=== PATIENT | male | born 1955 | race African-American/Black ===

== ENCOUNTER 2016-05-11 00:31 | Emergency (ER) | payer MEDICAID ==
[~2016-05-11] VITALS: Ht 180.3 cm; Wt 72.0 kg
[~2016-05-11 00:31] MED LIST: ALBU05
[2016-05-11] MEDS ORDERED: KETOROLAC 30MG/ML VIAL IV ONE (02:00)
[2016-05-11 02:02] LABS: BASOPHILS % 2.6 % (0.0-2.0); EOSINOPHILS % 3.2 % (0.0-5.0); HEMOGLOBIN. 14.2 g/dL (14.0-18.0); LYMPHOCYTES % 29.2 % (20.0-50.0); MEAN CORPUSCULAR HEMOGLOBIN 32.7 pg (28.0-32.0); MEAN CORPUSCULAR HGB CONC 33.1 g/dL (31.0-37.0); MEAN CORPUSCULAR VOLUME 98.8 fL (80.0-94.0); MEAN PLATELET VOLUME 8.1 fl (7.4-10.4); MONOCYTES % 20.2 % (2.0-8.0); NEUTROPHILS % 44.8 % (40.0-76.0); PLATELET 151 x1000/uL (130-400); RED BLOOD CELL COUNT 4.36 mill/uL (4.7-6.1); WHITE BLOOD COUNT 4.7 x1000/uL (4.5-11.0)
[2016-05-11 02:03] LABS: DIFFERENTIAL COMMENT 1
[2016-05-11 02:13] LABS: ANION GAP 9; CALCIUM 8.2 mg/dL (8.5-10.1); CARBON DIOXIDE 30 mEq/L (21-32); CHLORIDE 107 mEq/L (98-107); INDEX HEMOLYSI 1 (1-3); INDEX ICTERIC 1 (1-4); INDEX LIPEMIC 1 (1-3); UREA NITROGEN BLOOD 21 mg/dL (7-21)
[2016-05-11 02:17] LABS: NT PRO B-TYPE NATRIURETIC PEP 263 pg/mL (5-125); TROPONIN I < 0.02 ng/mL (0.00-0.04); eGFR > 60 mL/min (>60)
[2016-05-11] MEDS ORDERED: GUAIFENESIN/CODEINE 200-20MG/10ML UDC PO ONE (04:45)
[2016-05-11 05:20] VITALS: BP 158/99
[2016-05-11] MEDS ORDERED: GUAIFENESIN/CODEINE 200-20MG/10ML UDC PO NR (05:30)
== END 2016-05-11 06:39 | disposition home or self-care (01) ==
LOC: ER 00:33
DX: R07.9 Chest pain, unspecified (principal); R05 Cough; I10 Essential (primary) hypertension; J45.909 Unspecified asthma, uncomplicated; F17.200 Nicotine dependence, unspecified, uncomplicated; Z93.3 Colostomy status
CPT/HCPCS: 36415; 71010; 80048; 83880; 84484; 85025; 93005; 96374; 99285; J1885; Z7610

== ENCOUNTER 2016-05-19 03:38 | Emergency (ER) | payer MEDICAID ==
[~2016-05-19] VITALS: Ht 177.8 cm; Wt 75.0 kg
[2016-05-19] MEDS ORDERED: ASPIRIN 81MG TABLET PO STA (04:07)
[2016-05-19 04:24] LABS: HEMATOCRIT. 41.3 % (42.0-52.0); HEMOGLOBIN. 13.5 g/dL (14.0-18.0); MEAN CORPUSCULAR HEMOGLOBIN 32.2 pg (28.0-32.0); MEAN CORPUSCULAR HGB CONC 32.7 g/dL (31.0-37.0); MEAN CORPUSCULAR VOLUME 98.4 fL (80.0-94.0); MEAN PLATELET VOLUME 8.5 fl (7.4-10.4); PLATELET 207 x1000/uL (130-400); RED CELL DISTRIBUTION WIDTH 12.8 % (11.6-14.6); WHITE BLOOD COUNT 5.4 x1000/uL (4.5-11.0)
[2016-05-19 04:31] LABS: PROTHROMBIN TIME 10.6 sec
[2016-05-19 04:35] LABS: ALANINE AMINOTRANSFERASE 16 IU/L (13-61); ALBUMIN 3.4 g/dL (3.4-5.0); ANION GAP 15; CALCIUM 8.4 mg/dL (8.5-10.1); CARBON DIOXIDE 25 mEq/L (21-32); CHLORIDE 107 mEq/L (98-107); INDEX HEMOLYSI 1 (1-3); INDEX ICTERIC 1 (1-4); INDEX LIPEMIC 1 (1-3); LIPASE 105 IU/L (73-393); UREA NITROGEN BLOOD 15 mg/dL (7-21); eGFR 52 mL/min (>60)
[2016-05-19 04:38] LABS: TROPONIN I < 0.02 ng/mL (0.00-0.04)
[2016-05-19 04:48] LABS: PLATELET ESTIMATE NORMAL
[2016-05-19 05:49] VITALS: BP 135/88
== END 2016-05-19 05:49 | disposition home or self-care (01) ==
LOC: ER 03:39
DX: R05 Cough (principal); I10 Essential (primary) hypertension; R07.2 Precordial pain; J45.909 Unspecified asthma, uncomplicated; F17.200 Nicotine dependence, unspecified, uncomplicated; Z93.3 Colostomy status
CPT/HCPCS: 36415; 71010; 80053; 83690; 84484; 85025; 85610; 85730; 93005; 99285; Z7610

== ENCOUNTER 2016-05-28 08:39 | Emergency (ER) | payer MEDICAID ==
[~2016-05-28] VITALS: Ht 177.8 cm; Wt 73.0 kg
[2016-05-28] MEDS ORDERED: IBUPROFEN 800MG TABLET PO ONE (09:15)
[2016-05-28] MEDS ORDERED: BENAZEPRIL 20MG TABLET PO ONE (09:15)
[2016-05-28] MEDS ORDERED: AMLODIPINE 5MG TABLET PO SCH (09:15)
[2016-05-28 09:52] VITALS: BP 180/89
== END 2016-05-28 10:38 | disposition home or self-care (01) ==
LOC: ER 08:39
DX: I10 Essential (primary) hypertension (principal); J45.909 Unspecified asthma, uncomplicated; F17.200 Nicotine dependence, unspecified, uncomplicated; Z93.3 Colostomy status
CPT/HCPCS: 99284; Z7610

== ENCOUNTER 2016-06-20 12:01 | Emergency (ER) | payer MEDICAID ==
[~2016-06-20] VITALS: Ht 177.8 cm; Wt 78.0 kg
[2016-06-20 14:46] VITALS: BP 138/72
== END 2016-06-20 17:53 | disposition home or self-care (01) ==
LOC: ER 14:23
DX: Z76.89 Persons encountering health services in other specified circumstances (principal); M79.671 Pain in right foot; I10 Essential (primary) hypertension; J45.909 Unspecified asthma, uncomplicated
CPT/HCPCS: 99282

== ENCOUNTER 2016-07-03 06:52 | Emergency (ER) | payer MEDICAID ==
[~2016-07-03] VITALS: Ht 177.8 cm; Wt 75.0 kg
[2016-07-03 07:01] VITALS: BP 179/98
== END 2016-07-03 10:30 | disposition home or self-care (01) ==
LOC: ER 09:33
DX: L84 Corns and callosities (principal); J45.909 Unspecified asthma, uncomplicated; I10 Essential (primary) hypertension; F17.210 Nicotine dependence, cigarettes, uncomplicated; Z87.828 Personal history of other (healed) physical injury and trauma; Z98.890 Other specified postprocedural states; Z93.3 Colostomy status
CPT/HCPCS: 99281

== ENCOUNTER 2017-02-27 13:34 | Emergency (ER) | payer MEDICAID ==
[~2017-02-27] VITALS: Ht 177.8 cm; Wt 84.0 kg
[~2017-02-27 13:34] MED LIST changes: +AMLO5TAB4 PO; +P20 PO
[2017-02-27 13:51] VITALS: BP 159/99
== END 2017-02-27 18:21 | disposition home or self-care (01) ==
LOC: ER 15:19
DX: Z76.0 Encounter for issue of repeat prescription (principal); J45.909 Unspecified asthma, uncomplicated; I10 Essential (primary) hypertension; F17.210 Nicotine dependence, cigarettes, uncomplicated; F14.10 Cocaine abuse, uncomplicated; Z93.3 Colostomy status
CPT/HCPCS: 99283

== ENCOUNTER 2017-03-07 20:27 | Emergency (ER) | payer MEDICAID ==
[~2017-03-07] VITALS: Ht 177.8 cm; Wt 78.0 kg
[2017-03-08 06:00] VITALS: BP 142/85
[2017-03-08] MEDS ORDERED: ACETAMINOPHEN 325MG TABLET PO ONE (07:00)
== END 2017-03-08 07:09 | disposition home or self-care (01) ==
LOC: ER 22:23
DX: L84 Corns and callosities (principal); M79.671 Pain in right foot; J45.909 Unspecified asthma, uncomplicated; I10 Essential (primary) hypertension; F17.200 Nicotine dependence, unspecified, uncomplicated; M79.672 Pain in left foot; F14.10 Cocaine abuse, uncomplicated
CPT/HCPCS: 99283

== ENCOUNTER 2017-04-01 07:38 | Emergency (ER) | payer MEDICAID ==
[~2017-04-01] VITALS: Ht 177.8 cm; Wt 78.0 kg
[2017-04-01] MEDS ORDERED: IBUPROFEN 600MG TABLET PO ONE (11:15)
[2017-04-01 12:04] VITALS: BP 170/101
== END 2017-04-01 12:37 | disposition home or self-care (01) ==
LOC: ER 07:38
DX: L03.115 Cellulitis of right lower limb (principal); B35.3 Tinea pedis; M77.41 Metatarsalgia, right foot; J06.9 Acute upper respiratory infection, unspecified; J45.909 Unspecified asthma, uncomplicated; I10 Essential (primary) hypertension; F14.10 Cocaine abuse, uncomplicated; F17.200 Nicotine dependence, unspecified, uncomplicated; Z93.3 Colostomy status
CPT/HCPCS: 71045; 73630; 99284

== ENCOUNTER 2017-09-30 20:11 | Emergency (ER) | payer MEDICAID ==
[~2017-09-30] VITALS: Ht 177.8 cm; Wt 72.8 kg
[2017-09-30] MEDS ORDERED: IPRATROPIUM BROMIDE (0.02%) 0.5MG/2.5ML NEB HHN STA (23:03)
[2017-09-30] MEDS ORDERED: ALBUTEROL (0.083%) 2.5MG/3ML NEB HHN STA (23:03)
[2017-10-01 00:36] VITALS: BP 154/84
== END 2017-10-01 00:49 | disposition home or self-care (01) ==
LOC: ER 22:25
DX: J45.901 Unspecified asthma with (acute) exacerbation (principal); F41.9 Anxiety disorder, unspecified; F17.200 Nicotine dependence, unspecified, uncomplicated; Z79.899 Other long term (current) drug therapy; Z93.3 Colostomy status
CPT/HCPCS: 94640; 99283; J7611

== ENCOUNTER 2017-11-10 04:58 | Emergency (ER) | payer MEDICAID ==
[~2017-11-10] VITALS: Ht 177.8 cm; Wt 77.0 kg
[2017-11-10] MEDS ORDERED: ALBUTEROL (0.083%) 2.5MG/3ML NEB HHN STA (06:01)
[2017-11-10] MEDS ORDERED: IPRATROPIUM BROMIDE (0.02%) 0.5MG/2.5ML NEB HHN STA (06:01)
[2017-11-10] MEDS ORDERED: PREDNISONE 20MG TABLET PO STA (06:01)
[2017-11-10] MEDS ORDERED: AMLODIPINE 5MG TABLET PO ONE (06:15)
[2017-11-10 08:50] VITALS: BP 170/88
== END 2017-11-10 09:00 | disposition home or self-care (01) ==
LOC: ER 04:58
DX: J45.901 Unspecified asthma with (acute) exacerbation (principal); I10 Essential (primary) hypertension; F41.9 Anxiety disorder, unspecified; F17.200 Nicotine dependence, unspecified, uncomplicated; F12.10 Cannabis abuse, uncomplicated; F14.10 Cocaine abuse, uncomplicated; Z98.890 Other specified postprocedural states
CPT/HCPCS: 71045; 94644; 99285; J7512; J7611; Z7610